=== PATIENT | male | born 1995 | race Caucasian/White ===

== ENCOUNTER 2021-06-14 20:08 | Outpatient (CLI) | payer MEDICAID | END 2021-06-14 20:09 | disposition critical access hospital (66) | LOC: EMS 20:08 | DX: R51.9 Headache, unspecified (principal); M54.50 Low back pain, unspecified; H53.149 Visual discomfort, unspecified | CPT/HCPCS: A0425; A0429 ==

== ENCOUNTER 2021-06-14 20:42 | Emergency (ER) | payer MEDICAID ==
--- NOTE | 2021-06-14 20:56 | ED Physician Documentation ---
PD HPI HEADACHE - Stated complaint Stated Complaint: MACIAS, BACK PAIN - History obtained from History obtained from: Patient - History of Present Illness Timing - onset: Today (this morning) Timing - onset during: Rest Timing - details: Gradual onset, Constant, Waxing and waning, Still present in ED Pain level now: 9 Worst headache ever?: No: Worst headache ever? (he says he has had similar headaches before which he refers to as migraine headaches, but in further discussion, it is unclear if he has been diagnosed with migraine headache) Location: Global Quality: Other (pressure) Associated symptoms: Nausea. No: Fever, Stiff neck, Vomiting Improved by: Rest, Dark room Worsened by: Light Contributing factors: Trauma (h/o TBI). No: Anticoagulated, Hypertension Recently seen: Not recently seen - Additional information Additional information: c/o global headache since this morning, gradual onset with photophobia. He also c/o bilateral low back pain x yesterday, denies injury. Also indicates he his having pain across lower back since this morning as well. Review of Systems Constitutional: reports: Myalgias. denies: Fever Eyes: reports: Photophobia. denies: Loss of vision, Decreased vision Cardiac: reports: Reviewed and negative Respiratory: reports: Reviewed and negative GI: reports: Nausea. denies: Abdominal Pain, Vomiting : denies: Dysuria, Hematuria Musculoskeletal: reports: Back pain. denies: Neck pain Neurologic: reports: Headache. denies: Generalized weakness, Altered mental status, Head injury (h/o TBI but no recent head injury) PD PAST MEDICAL HISTORY - Past Medical History Past Medical History: Yes Other Past Medical History: TBI - Allergies Allergies/Adverse Reactions: Allergies Allergy/AdvReac Type Severity Reaction Status Date / Time No Known Drug Allergies Allergy Verified 06/14/21 21:34 PD ED PE NORMAL - Vitals Vital signs reviewed: Yes - General General: Alert and oriented X 3, Well developed/nourished, Other (appears uncomfortable; shielding his eyes from light) - HEENT HEENT: PERRL, EOMI, Moist mucous membranes - Neck Neck: Supple, no meningeal sign - Cardiac Cardiac: No murmur - Respiratory Respiratory: No respiratory distress, Clear bilaterally PD ED PE EXPANDED - Cardiac Cardiac: Tachy, Regular Rhythm Results - Vitals Vitals: Oxygen O2 Source Room air - Labs Labs: Laboratory Tests 06/14/21 21:35 Nasal Adenovirus (PCR) NOT DETECTED Nasal B. parapertussis DNA (PCR) NOT DETECTED Nasal Coronavir 229E PCR NOT DETECTED Nasal Coronavir HKU1 PCR NOT DETECTED Nasal Coronavir NL63 PCR NOT DETECTED Nasal Coronavir OC43 PCR NOT DETECTED Nasal Enterovir/Rhinovir PCR NOT DETECTED Nasal Influenza B PCR NOT DETECTED Nasal Influenza A PCR NOT DETECTED Nasal Parainfluen 1 PCR NOT DETECTED Nasal Parainfluen 2 PCR NOT DETECTED Nasal Parainfluen 3 PCR NOT DETECTED Nasal Parainfluen 4 PCR NOT DETECTED Nasal RSV (PCR) NOT DETECTED Nasal B.pertussis DNA PCR NOT DETECTED Nasal C.pneumoniae (PCR) NOT DETECTED Romeo Human Metapneumo PCR NOT DETECTED Nasal M.pneumoniae (PCR) NOT DETECTED Nasal SARS-CoV-2 (PCR) DETECTED A - Rads (name of study) CT head Radiology: Prelim report reviewed, See rad report PD MEDICAL DECISION MAKING - ED course Complexity details: reviewed results, re-evaluated patient, considered differential, d/w patient ED course: presents with chief complaint of generalized headache, also notes LBP (bilateral), symptoms began this morning. He has significant relief of symptoms with 60mg IM toradol (slept for the rest of the ED stay after this was given, was arousable to voice). CTH is unremarkable. He is COVID-19 POSITIVE, which could account for his symptoms, or at least would likely contribute. Further testing not indicated at this time. Departure - Departure Disposition: 01 Home, Self Care Clinical Impression: Headache, COVID-19 Condition: Good Instructions: ED Cephalgia Unspecified, ED Viral Syndrome Follow-Up: Zaire Chiu MD [Provider Admit Priv/Credential] - Comments: You tested POSITIVE for COVID-19 tonight. Follow the latest CDC guidelines regarding quarantine/isolation (you can enter the following into your browser, although it might be easier to Google search "CDC quarantine"): https://www.cdc.gov/coronavirus/2019-ncov/your-health/quarantine-isolation.html The CT scan of your head does not show a cause for your headache (potential serious causes of headache that typically would be seen on a CT scan include bleeding or a mass). Many causes of headache do not show up on CT scan, such as migraine headache. COVID-19 often causes headaches, so this might be causing, or contributing to, the headache as well as the back pain, but I would not assume this was/is the cause (which is why the CT scan was performed). If your symptoms worsen, you should return to the emergency department for reevaluation. Otherwise, you should contact your primary care provider to arrange for a follow-up appointment for reevaluation. You can take acetaminophen (tylenol) or ibuprofen (advil, motrin) for headaches and/or back pain as directed on the label. Discharge Date/Time: 06/15/21 00:25
[2021-06-14] MEDS ORDERED: KETOROLAC 60 MG/2 ML VIAL IM STA (21:07)
--- NOTE | 2021-06-14 21:48 | CT Report ---
PROCEDURE: HEAD WO INDICATIONS: headache TECHNIQUE: Noncontrast 4.5 mm thick angled axial sections acquired from the foramen magnum to the vertex. For r adiation dose reduction, the following was used: automated exposure control, adjustment of mA and/or kV according to patient size. COMPARISON: None. FINDINGS: Image quality: Excellent. CSF spaces: Basal cisterns are patent. No extra-axial fluid collections. Ventricles are normal in size and shape. Brain: No midline shift. No intracranial masses or hemorrhage. Cleary-white matter interface is norm al. Skull and face: There is no acute calvarial abnormality. Deformity involving right orbital floor is s een with postsurgical changes seen in right lateral orbital wall suggest clinical correlation. Sinuses: Mucosal thickening in right maxillary sinus is seen. IMPRESSION: 1. No CT evidence of acute intracranial abnormalities. 2. No acute skull fracture. 3. Postsurgical changes involving right lateral orbital wall with comminuted and subacute appearing r ight orbital floor fracture. Mucosal thickening is seen in right maxillary sinus. Reviewed by: Luis Manuel Bolivar MD on 06/14/2021 9:46 PM PST Approved by: Luis Manuel Bolivar MD on 06/14/2021 9:46 PM PST Station ID: [id number]
[2021-06-14 22:59] LABS: CORONAVIRUS 229E-RESP PCR NOT DETECTED; CORONAVIRUS HKU1-RESP PCR NOT DETECTED; CORONAVIRUS NL63-RESP PCR NOT DETECTED; CORONAVIRUS OC43-RESP PCR NOT DETECTED
[2021-06-14 23:01] LABS: SARS-CoV-2 -RESP PCR PANEL DETECTED
[2021-06-14 23:02] LABS: B. PARAPERTUSSIS- RESP PCR PAN NOT DETECTED; B. PERTUSSIS- RESP PCR PANEL NOT DETECTED; C. PNEUMONIAE- RESP PCR PANEL NOT DETECTED; HUMAN METAPNEUMOVIRUS NOT DETECTED; INFLUENZA A- RESP PCR PANEL NOT DETECTED; INFLUENZA B - RESP PCR PANEL NOT DETECTED; PARAINFLUENZA VIRUS 1 NOT DETECTED; PARAINFLUENZA VIRUS 2 NOT DETECTED; PARAINFLUENZA VIRUS 3 NOT DETECTED; PARAINFLUENZA VIRUS 4 NOT DETECTED; RHINOVIRUS/ENTEROVIRUS NOT DETECTED; RSV- RESP PCR PANEL NOT DETECTED
[2021-06-14 23:03] LABS: M. PNEUMONIAE- RESP PCR PANEL NOT DETECTED
[2021-06-15 00:08] VITALS: BP 123/64
== END 2021-06-15 00:25 | disposition home or self-care (01) ==
LOC: ED 20:42
DX: R51.9 Headache, unspecified (principal); U07.1 COVID-19
CPT/HCPCS: 0202U; 70450; 96372; 99284

== ENCOUNTER 2021-10-17 20:58 | Emergency (ER) | payer MEDICAID ==
[2021-10-17 21:06] VITALS: BP 150/90
--- NOTE | 2021-10-17 22:02 | ED Physician Documentation ---
PD HPI MHE - Stated complaint Stated Complaint: MHE - Chief complaint Chief Complaint: MHE - History obtained from History obtained from: Patient - History of Present Illness Primary symptom: Medical clearance Timing - onset: How many months ago (2) Contributing factors: Family Similar symptoms before: Has not had sx before Recently seen: Not recently seen - Additional information Additional information: 26-year-old Florentin Perry has been asked by CPS to get a mental health evaluation. The patient tells me that a CPS investigation was opened into his children and the case is being closed with false allegations. The patient states that the allegations involved use of drugs in his house. He indicates that he and his girlfriend live with a girlfriend's grandmother in a house in [place] with their 7 children. He indicates that he has 3 boys by 2 different spouses and she has 4 girls by 2 different spouses. Patient is expecting to get full custody of his sons. Review of Systems Constitutional: denies: Fever Cardiac: denies: Chest pain / pressure Respiratory: denies: Cough GI: denies: Vomiting, Diarrhea PD PAST MEDICAL HISTORY - Past Medical History Past Medical History: No - Past Surgical History Past Surgical History: Yes Ortho: Other - Present Medications Home Medications: Ambulatory Orders Medication Instructions Recorded Confirmed No Known Home Medications 10/17/21 10/17/21 - Allergies Allergies/Adverse Reactions: Allergies Allergy/AdvReac Type Severity Reaction Status Date / Time No Known Drug Allergies Allergy Verified 10/17/21 21:03 - Social History Does the pt smoke?: Yes Smoking Status: Current every day smoker Does the pt drink ETOH?: No Does the pt have substance abuse?: No - Immunizations Immunizations are current?: Yes - POLST Patient has POLST: No PD ED PE NORMAL - Vitals Vital signs reviewed: Yes (hypertensive ) - General General: Alert and oriented X 3, No acute distress, Well developed/nourished - HEENT HEENT: Atraumatic, PERRL, EOMI - Respiratory Respiratory: No respiratory distress - Derm Derm: Normal color, Warm and dry, No rash - Extremities Extremities: No deformity - Neuro Neuro: Alert and oriented X 3, cigar patcher 2-12 intact, No motor deficit, No sensory deficit, Normal speech Eye Opening: Spontaneous Motor: Obeys Commands Verbal: Oriented GCS Score: 15 - Psych Psych: Normal mood, Normal affect Results - Vitals Vitals: Vital Signs - 24 hr 10/17/21 21:03 Temperature 36.5 C Heart Rate 100 Respiratory 16 Rate Blood Pressure 150/90 H O2 Saturation 98 Oxygen O2 Source Room air PD MEDICAL DECISION MAKING - ED course Complexity details: considered differential, d/w patient ED course: 26-year-old Florentin Obrien comes in asking for a mental health evaluation as part of an assignment to be completed for getting custody of his sons. I discussed with the patient the option he had here today with us would be to wait for telepsych as the evaluation and he opted to look elsewhere for the assignment Departure - Departure Disposition: Home, Self Care Clinical Impression: Mental health-related complaint Condition: Stable Instructions: ED Stress React Follow-Up: [facility] [place] [Provider Group] Comments: Florentin as we discussed you are always welcome to come back to the emergency department for further evaluation what we have available in the emergency department is a telepsych evaluation which usually takes hours to complete. I have given you a list of community health options on [facility] for completing this assignment. Discharge Date/Time: 10/17/21 22:13
== END 2021-10-17 22:13 | disposition home or self-care (01) ==
LOC: ED 20:58
DX: Z02.89 Encounter for other administrative examinations (principal); F17.200 Nicotine dependence, unspecified, uncomplicated
CPT/HCPCS: 99281